=== PATIENT | male | born 1990 | race Caucasian/White ===

== ENCOUNTER 2017-09-12 12:11 | Emergency (ER) | END 2017-09-12 16:20 | disposition home or self-care (01) ==

== ENCOUNTER 2017-09-14 09:10 | Emergency (ER) | END 2017-09-14 11:02 | disposition home or self-care (01) ==

== ENCOUNTER 2018-02-01 15:41 | Emergency (ER) | END 2018-02-01 17:07 | disposition home or self-care (01) ==

== ENCOUNTER 2018-04-28 09:41 | Emergency (ER) | END 2018-04-28 12:15 | disposition home or self-care (01) ==